=== PATIENT | female | born 1930 | race Two or more races ===

== ENCOUNTER 2017-04-02 20:47 | Emergency (ER) | payer MEDICAID ==
--- NOTE | 2017-04-03 01:40 | ER ---
ADMIT: 04/02/2017 RM/LOC: ER [facility] MR#: [id number] [place], [place] [id number] KADY PACHECO [address] [place] [id number] Emergency Room Report SEX: F AGE: 86 : 1930 DATE: 04/02/2017 CHIEF COMPLAINT: Bleeding from her right ear. HISTORY OF PRESENT ILLNESS: The patient is an 86-year-old female, who is on Coumadin as she has a pacemaker and she was cleaning her right ear with a Q- tip when it began to bleed. This happened a couple of hours prior to arrival and son was concerned, so he brought her in to be checked out. She has no other bleeding anywhere else. No easy bruising at this time. She has no other complaints of recent illness, fevers, chills, chest pain, or shortness of breath. PAST MEDICAL HISTORY: Diabetes, hypertension, and pacemaker. MEDICATIONS: See nurse's note. She is on Coumadin. ALLERGIES: SEE NURSE'S NOTE. SOCIAL HISTORY: Denies smoking, drug, or alcohol use. PHYSICAL EXAMINATION: VITAL SIGNS: Stable. No elevated temperature. GENERAL: The patient is alert, oriented, in no distress. HEENT: Head is atraumatic other than when I looked at her right ear, she does appear to have some dried blood, small clot in the dependent region of her internal ear canal. I can visualize the ear drum and it is intact with no injuries I can appreciate. She has no respiratory distress. HEART: Regular rate and rhythm. SKIN: Warm and dry with no ecchymosis. MEDICAL DECISION MAKING: At this point, there is no active bleeding, so she is instructed to go home, to not use any more Q-tips and if bleeding recurs, she is to put a moistened cotton ball gently in the ear and wait. If bleeding stops, she will need no further follow up. If she cannot get the bleeding to stopped, she will need to return to the ER. She is to follow up with the regular physician as needed and continue current medications. DIAGNOSIS: Mechanical trauma to right ear canal. Que Maki MD/ dakota JOB #: [id number] CC: Dmitriy Tomlinson MD, Attending Physician
== END 2017-04-02 22:07 | disposition home or self-care (01) ==
LOC: ER 20:47
DX: S09.91XA Unspecified injury of ear, initial encounter (principal); E11.9 Type 2 diabetes mellitus without complications; I10 Essential (primary) hypertension; Z95.0 Presence of cardiac pacemaker; Z79.01 Long term (current) use of anticoagulants; Z79.4 Long term (current) use of insulin; Z79.899 Other long term (current) drug therapy; X58.XXXA Exposure to other specified factors, initial encounter